=== PATIENT | female | born 1950 | race Caucasian/White ===

== ENCOUNTER 2016-08-26 07:45 | Outpatient (CLI) | payer OTHER ==
[2016-08-26 08:19] VITALS: BP 120/81; TEMP 98.1
[2016-08-26] MEDS ORDERED: TYLENOL PO STA (08:24)
[2016-08-26] MEDS ORDERED: BENADRYL IV STA (08:25)
[2016-08-26] MEDS ORDERED: SOLU-CORTEF 100 MG IVP STA (08:26)
[2016-08-26] MEDS ORDERED: BENADRYL 25 MG in SODIUM CHLORIDE 100 ML IV STA (08:30)
[2016-08-26] MEDS ORDERED: INFED 1,000 MG in SODIUM CHLORIDE 500 ML IV ONE (09:00)
== END 2016-08-26 07:46 | disposition home or self-care (01) ==
LOC: OPMED 07:45
PROVIDERS: ATTEND Internal Medicine Hematology & Oncology
DX: D50.9 Iron deficiency anemia, unspecified (principal); K90.9 Intestinal malabsorption, unspecified
CPT/HCPCS: 96365; 96366; 96375

== ENCOUNTER 2016-09-28 07:52 | Outpatient (CLI) ==
[2016-09-28] MEDS ORDERED: TYLENOL PO STA (08:04)
[2016-09-28] MEDS ORDERED: BENADRYL 25 MG in SODIUM CHLORIDE 100 ML IV STA (08:05)
[2016-09-28] MEDS ORDERED: INFED 1,000 MG in SODIUM CHLORIDE 500 ML IV STA (08:05)
[2016-09-28] MEDS ORDERED: SOLU-CORTEF 100 MG IVP STA (08:05)
== END 2016-09-28 07:53 | disposition home or self-care (01) ==
LOC: OPMED 07:52
PROVIDERS: ATTEND Internal Medicine Hematology & Oncology
DX: D50.9 Iron deficiency anemia, unspecified (principal); K90.9 Intestinal malabsorption, unspecified
CPT/HCPCS: 96365; 96366; 96367; 96375

== ENCOUNTER 2016-10-22 08:35 | Outpatient (CLI) | payer OTHER ==
[2016-10-22 09:30] VITALS: BP 124/81; TEMP 97.5
[2016-10-22] MEDS ORDERED: TYLENOL PO STA (09:31)
[2016-10-22] MEDS ORDERED: BENADRYL 25 MG in SODIUM CHLORIDE 100 ML IV STA (09:31)
[2016-10-22] MEDS ORDERED: INFED 1,000 MG in SODIUM CHLORIDE 500 ML IV STA (09:32)
== END 2016-10-22 08:36 | disposition home or self-care (01) ==
LOC: OPMED 08:35
PROVIDERS: ATTEND Internal Medicine Hematology & Oncology
DX: D50.9 Iron deficiency anemia, unspecified (principal); K90.9 Intestinal malabsorption, unspecified; R53.83 Other fatigue; E78.5 Hyperlipidemia, unspecified; R07.9 Chest pain, unspecified; I25.10 Atherosclerotic heart disease of native coronary artery without angina pectoris; I67.9 Cerebrovascular disease, unspecified; G81.91 Hemiplegia, unspecified affecting right dominant side; R93.1 Abnormal findings on diagnostic imaging of heart and coronary circulation
CPT/HCPCS: 96365; 96367

== ENCOUNTER 2016-12-24 08:18 | Outpatient (CLI) ==
[2016-12-24] MEDS ORDERED: TYLENOL PO STA (08:49)
[2016-12-24] MEDS ORDERED: BENADRYL IVP STA (08:57)
[2016-12-24] MEDS ORDERED: SOLU-CORTEF 100 MG 100 MG in SODIUM CHLORIDE 100 ML IV ONE (09:01)
[2016-12-24] MEDS ORDERED: INFED 1,000 MG in SODIUM CHLORIDE 500 ML IV STA (09:03)
[2016-12-24] MEDS ORDERED: BENADRYL 25 MG in SODIUM CHLORIDE 100 ML IV STA (09:08)
[2016-12-24] MEDS ORDERED: SOLU-CORTEF 100 MG IVP STA (09:15)
[2016-12-24 15:15] VITALS: BP 112/64; TEMP 98.1
== END 2016-12-24 08:19 | disposition home or self-care (01) ==
LOC: OPMED 08:18
PROVIDERS: ATTEND Internal Medicine Hematology & Oncology
DX: D50.9 Iron deficiency anemia, unspecified (principal); K90.9 Intestinal malabsorption, unspecified
CPT/HCPCS: 96365; 96367; 96375

== ENCOUNTER 2017-01-21 08:20 | Outpatient (CLI) ==
[2017-01-21] MEDS ORDERED: BENADRYL 25 MG in SODIUM CHLORIDE 100 ML IV STA (08:39)
[2017-01-21] MEDS ORDERED: INFED 1,000 MG in SODIUM CHLORIDE 500 ML IV STA (08:39)
[2017-01-21] MEDS ORDERED: SOLU-CORTEF 100 MG IVP STA (08:40)
[2017-01-21 08:45] VITALS: BP 122/72; TEMP 98.8
== END 2017-01-21 08:21 | disposition home or self-care (01) ==
LOC: OPMED 08:20
PROVIDERS: ATTEND Internal Medicine Hematology & Oncology
DX: D50.9 Iron deficiency anemia, unspecified (principal); K90.9 Intestinal malabsorption, unspecified
CPT/HCPCS: 96365; 96366; 96375

== ENCOUNTER 2017-02-24 08:12 | Outpatient (CLI) | payer OTHER ==
[2017-02-24] MEDS: TYLENOL PO STA (09:19)
[2017-02-24 09:32] VITALS: TEMP 98.4
[2017-02-24] MEDS: SOLU-CORTEF 100 MG 100 MG in SODIUM CHLORIDE 100 ML IV ONE (09:54)
[2017-02-24] MEDS: BENADRYL 25 MG in SODIUM CHLORIDE 100 ML IV STA ×2 (09:57)
[2017-02-24] MEDS: INFED 1,000 MG in SODIUM CHLORIDE 500 ML IV STA ×2 (10:35→10:37)
== END 2017-02-24 14:55 | disposition home or self-care (01) ==
LOC: OPMED 08:12
PROVIDERS: ATTEND Internal Medicine Hematology & Oncology
DX: D50.9 Iron deficiency anemia, unspecified (principal); K90.9 Intestinal malabsorption, unspecified
CPT/HCPCS: 96365; 96366; 96375

== ENCOUNTER 2017-03-22 08:25 | Outpatient (CLI) ==
[2017-03-22] MEDS ORDERED: SODIUM CHLORIDE IV STA (08:35)
[2017-03-22] MEDS ORDERED: INFED IV STA (08:35)
[2017-03-22] MEDS ORDERED: INFED IVP STA (08:35)
[2017-03-22] MEDS ORDERED: BENADRYL 25 MG in SODIUM CHLORIDE 100 ML IV STA (08:36)
[2017-03-22] MEDS ORDERED: SOLU-CORTEF 100 MG IVP STA (08:36)
[2017-03-22] MEDS ORDERED: TYLENOL PO STA (08:36)
[2017-03-22 08:48] VITALS: BP 110/60; TEMP 98.3
== END 2017-03-22 08:26 | disposition home or self-care (01) ==
LOC: OPMED 08:25
PROVIDERS: ATTEND Internal Medicine Hematology & Oncology
DX: D50.9 Iron deficiency anemia, unspecified (principal); K90.9 Intestinal malabsorption, unspecified
CPT/HCPCS: 96365; 96367; 96375

== ENCOUNTER 2017-07-21 08:29 | Outpatient (CLI) ==
[2017-07-21] MEDS ORDERED: SOLU-CORTEF 100 MG 100 MG in SODIUM CHLORIDE 100 ML IV ONE (09:15)
[2017-07-21] MEDS: TYLENOL PO STA (09:42)
[2017-07-21] MEDS: BENADRYL IV STA (09:43)
[2017-07-21] MEDS: SODIUM CHLORIDE IV STA ×2 (09:43→10:27)
[2017-07-21] MEDS: SOLU-CORTEF 100 MG IVP ONE (09:43)
--- NOTE | 2017-07-21 10:04 | ED.PDOC ---
Procedures - IV/Art Line Insertion Location: LT wrist Type of Line: Peripheral IV Invasive Line/IV Catheter Gauge: 22 Number of Attempts: 1 Blood Return Positive: Yes Invasive Line/IV Flushes Without Difficulty: Yes Conscious Sedation - Pre-op Assessment Weight: 203 lb
[2017-07-21] MEDS: INFED IV STA (10:27)
[2017-07-21 12:13] VITALS: BP 129/76; TEMP 97.2
== END 2017-07-21 08:30 | disposition home or self-care (01) ==
LOC: OPMED 08:29
PROVIDERS: ATTEND Internal Medicine Hematology & Oncology
DX: D50.9 Iron deficiency anemia, unspecified (principal); K90.9 Intestinal malabsorption, unspecified
CPT/HCPCS: 96365; 96367; 96375

== ENCOUNTER 2017-08-17 07:59 | Outpatient (CLI) ==
[2017-08-17] MEDS ORDERED: TYLENOL PO STA (08:10)
[2017-08-17] MEDS ORDERED: BENADRYL 25 MG in SODIUM CHLORIDE 100 ML IV STA (08:11)
[2017-08-17] MEDS ORDERED: SOLU-CORTEF 100 MG IVP STA (08:12)
[2017-08-17] MEDS ORDERED: INFED IV STA (08:13)
[2017-08-17] MEDS ORDERED: SODIUM CHLORIDE IV STA (08:13)
[2017-08-17 08:20] VITALS: BP 138/89; TEMP 97.8
== END 2017-08-17 13:05 | disposition home or self-care (01) ==
LOC: OPMED 07:59
PROVIDERS: ATTEND Internal Medicine Hematology & Oncology
DX: K90.9 Intestinal malabsorption, unspecified (principal); D50.9 Iron deficiency anemia, unspecified
CPT/HCPCS: 96365; 96366; 96375

== ENCOUNTER 2017-09-24 08:04 | Outpatient (CLI) ==
[2017-09-24 08:32] VITALS: BP 130/83; TEMP 97.3
[2017-09-24] MEDS ORDERED: TYLENOL PO STA (08:52)
[2017-09-24] MEDS ORDERED: SOLU-CORTEF 100 MG IVP STA (08:53)
[2017-09-24] MEDS ORDERED: BENADRYL 25 MG in SODIUM CHLORIDE 100 ML IV STA (08:53)
[2017-09-24] MEDS ORDERED: INFED IVP STA (08:55)
[2017-09-24] MEDS ORDERED: SODIUM CHLORIDE IV STA (08:57)
[2017-09-24] MEDS ORDERED: INFED IV STA (08:57)
[2017-09-24] MEDS ORDERED: INFED 1,000 MG in SODIUM CHLORIDE 500 ML IV STA (10:12)
== END 2017-09-24 08:05 | disposition home or self-care (01) ==
LOC: OPMED 08:04
PROVIDERS: ATTEND Internal Medicine Hematology & Oncology
DX: D50.9 Iron deficiency anemia, unspecified (principal); K90.9 Intestinal malabsorption, unspecified
CPT/HCPCS: 96365; 96366; 96375

== ENCOUNTER 2017-11-02 08:06 | Outpatient (CLI) ==
--- NOTE | 2017-11-03 09:45 | MAMMO ---
EXAM: Bilateral digital screening mammogram (2-D and 3-D) History: Screening Comparison: Bilateral mammogram 05/10/2015 Findings: MLO and CC views of bilateral breasts demonstrate scattered fibroglandular breast parenchy ma. Stable benign bilateral lymph nodes. Stable benign bilateral vascular calcifications. There ar e no dominant masses, no suspicious microcalcifications and no architectural distortions Impression: Benign stable mammogram. Recommend followup routine screening mammography in 1 year. BIRADS 2
== END 2017-11-02 08:07 | disposition home or self-care (01) ==
LOC: RAD 08:06
PROVIDERS: ATTEND Family Medicine
DX: Z12.31 Encounter for screening mammogram for malignant neoplasm of breast (principal)
CPT/HCPCS: 77067

== ENCOUNTER 2017-11-16 07:57 | Outpatient (CLI) | payer OTHER ==
[2017-11-16] MEDS ORDERED: BENADRYL 25 MG in SODIUM CHLORIDE 100 ML IV STA (08:17)
[2017-11-16] MEDS ORDERED: SOLU-CORTEF 100 MG IVP STA (08:17)
[2017-11-16] MEDS ORDERED: TYLENOL PO STA (08:17)
[2017-11-16] MEDS ORDERED: INFED 1,000 MG in SODIUM CHLORIDE 500 ML IV STA (08:18)
[2017-11-16 08:21] VITALS: BP 123/74; TEMP 97.6
== END 2017-11-16 07:58 | disposition home or self-care (01) ==
LOC: OPMED 07:57
PROVIDERS: ATTEND Internal Medicine Hematology & Oncology
DX: D50.9 Iron deficiency anemia, unspecified (principal); K90.9 Intestinal malabsorption, unspecified
CPT/HCPCS: 96365; 96366; 96367; 96375